=== PATIENT | female | born 1945 | race Caucasian/White ===

== ENCOUNTER 2016-11-12 09:13 | Outpatient (CLI) | payer MEDICARE ==
[~2016-11-12] VITALS: Ht 152.4 cm; Wt 61.4 kg
[~2016-11-12 09:13] MED LIST: HYDR12.55 PO
[2016-11-12] MEDS ORDERED: NS 1,000 ML IV ONE (10:00)
[2016-11-12] MEDS ORDERED: PROPOFOL 200 MG/20 ML VIAL As Ordered ONE ×2 (10:52→11:04)
[2016-11-12] MEDS ORDERED: LIDOCAINE 2% INJ 100 MG/5 ML SDV (FOR ANES.) As Ordered ONE (10:52)
--- NOTE | 2016-11-12 11:12 | ROOR ---
Patient Name: Lona Irving Procedure Date: 11/12/2016 10:45 AM Date of : 1945 Age: 71 Room: [facility] Gender: Female Note Status: Finalized Procedure: Colonoscopy Indications: High risk colon cancer surveillance: Personal history of colonic polyps Providers: Bonilla Moon Jr, MD Referring MD: Echo HEMPHILL RN Requesting Provider: Medicines: Propofol per Anesthesia Complications: No immediate complications. Procedure: Pre-Anesthesia Assessment: - Prior to the procedure, a History and Physical was performed, and patient medications and allergies were reviewed. The patient is competent. The risks and benefits of the procedure and the sedation options and risks were discussed with the patient. All questions were answered and informed consent was obtained. Patient identification and proposed procedure were verified by the physician and the nurse in the pre-procedure area and in the procedure room. Mental Status Examination: alert and oriented. Airway Examination: normal oropharyngeal airway and neck mobility. Respiratory Examination: clear to auscultation. CV Examination: normal. ASA Grade Assessment: II - A patient with mild systemic disease. After reviewing the risks and benefits, the patient was deemed in satisfactory condition to undergo the procedure. The anesthesia plan was to use moderate sedation / analgesia (conscious sedation). Immediately prior to administration of medications, the patient was re-assessed for adequacy to receive sedatives. The heart rate, respiratory rate, oxygen saturations, blood pressure, adequacy of pulmonary ventilation, and response to care were monitored throughout the procedure. The physical status of the patient was re-assessed after the procedure. The Colonoscope was introduced through the anus and advanced to the ileocolonic anastomosis. The colonoscopy was performed without difficulty. The patient tolerated the procedure well. The quality of the bowel preparation was adequate and good. Findings: The rectum, recto-sigmoid colon, descending colon, transverse colon and anastomosis appeared normal. Multiple small and large-mouthed diverticula were found in the sigmoid colon. Impression: - The rectum, recto-sigmoid colon, descending colon and transverse colon are normal. - Diverticulosis in the sigmoid colon. - No specimens collected. Recommendation: - Discharge patient to home (ambulatory). - Repeat colonoscopy in 5 years for surveillance. Bonilla Moon MD Bonilla Moon Jr, MD 11/12/2016 11:11:32 AM This report has been signed electronically. Number of Addenda: 0 Note Initiated On: 11/12/2016 10:45 AM Estimated Blood Loss: Estimated blood loss: none.
[2016-11-12 11:19] VITALS: BP 147/87
== END 2016-11-12 11:49 | disposition home or self-care (01) ==
LOC: M OPP 09:13
PROVIDERS: ATTEND Surgery
DX: Z12.11 Encounter for screening for malignant neoplasm of colon (principal); K57.30 Diverticulosis of large intestine without perforation or abscess without bleeding; Z86.010 Personal history of colon polyps

== ENCOUNTER → 2017-03-02 | Outpatient (CLI) | payer OTHER | LOC: M RAD 10:23 | DX: N63.24 Unspecified lump in the left breast, lower inner quadrant (principal); L03.313 Cellulitis of chest wall | CPT/HCPCS: 77066 ==

== ENCOUNTER 2020-02-02 04:47 | Emergency (ER) | payer MEDICARE, OTHER ==
[~2020-02-02] VITALS: Ht 152.4 cm; Wt 65.4 kg
[2020-02-02] MEDS ORDERED: LABETALOL 100MG/20ML VIAL IV STA (05:18)
[2020-02-02 05:22] LABS: BASO % 0.1 % (0.0-1.0); EOS % 0.3 % (0.0-3.0); HEMATOCRIT 41.6 % (36.0-47.0); HEMOGLOBIN 12.6 g/dl (12.0-15.5); LYMPH # 0.9 10^3/uL (1.5-5.0); LYMPH % 13.1 % (24.0-44.0); MEAN CORPUSCULAR HEMOGLOBIN 25.2 pg (27.0-33.0); MEAN CORPUSCULAR HGB CONC 30.3 g/dl (32.0-36.5); MEAN CORPUSCULAR VOLUME 83.2 fl (80.0-96.0); MONO # 0.5 10^3/uL (0.0-0.8); MONO % 6.6 % (0.0-5.0); NEUTROPHILS # 5.6 10^3/uL (1.5-8.5); NEUTROPHILS % 79.5 % (36.0-66.0); PLATELET COUNT, AUTOMATED 267 10^3/uL (150-450)
[2020-02-02] MEDS ORDERED: CLOPIDOGREL 300 MG TAB (PLAVIX) PO ONE (05:30)
[2020-02-02] MEDS ORDERED: ASPIRIN 81 MG CHEW TABLET PO ONE (05:30)
[2020-02-02] MEDS ORDERED: TENECTEPLASE 50 MG KIT (TNKase) (J3101 PER 1MG) IV ONE (05:30)
[2020-02-02] MEDS ORDERED: HEPARIN SOD (PORCINE) 5000UNITS/ML 1ML VIAL/SYRINGE IV ONE (05:30)
[2020-02-02] MEDS ORDERED: HEPARIN DRIP 25,000 UNITS in IV 1 EA IV SCH ×2 (05:30→05:36)
[2020-02-02] MEDS ORDERED: NITROGLYCERIN 2% OINT 1 GM *U/D* PKT TOP ONE (05:45)
--- NOTE | 2020-02-02 05:50 | REPVR ---
PROCEDURE INFORMATION: Exam: XR Chest, 1 View Exam date and time: 02/02/2020 5:32 AM Age: 75 years old Clinical indication: Chest pain TECHNIQUE: Imaging protocol: XR of the chest Views: 1 view. COMPARISON: CR Chest, 2 view PA, Lat 02/10/2013 10:59 AM FINDINGS: Lungs: There is minimal bibasilar atelectatic changes at the costophrenic angles. Pleural space: Unremarkable. No pleural effusion. No pneumothorax. Heart/Mediastinum: The cardiomediastinal silhouette is magnified. Vasculature: The thoracic aorta is tortuous. Bones/joints: Unremarkable. IMPRESSION: No focal consolidation. Electronically signed by: Beck Rodriguez On 02/02/2020 05:50:32 AM
[2020-02-02 05:51] LABS: CALCIUM LEVEL 9.2 MG/DL (8.8-10.2); CREATININE FOR GFR 1.25 MG/DL (0.55-1.30); GLOMERULAR FILTRATION RATE 44.6 (>39); MB/CK RELATIVE INDEX 5.1 (< OR =4); POTASSIUM SERUM 4.6 MEQ/L (3.5-5.1); TROPONIN I 0.69 NG/ML (< 0.10)
[2020-02-02 05:52] VITALS: BP 140/87
[2020-02-02 06:22] LABS: RSV AMPLIFICATION NEGATIVE (NEGATIVE)
[2020-02-02] MEDS ORDERED: MORPHINE 2 MG/ML 1ML VIAL (J2270) As Ordered ONE (06:23)
[2020-02-02 06:30] VITALS: BP 158/95
[2020-02-02] MEDS ORDERED: MORPHINE 2 MG/ML 1ML VIAL (J2270) IV PRN (06:30)
[2020-02-02 06:46] LABS: INR 0.88; PROTHROMBIN TIME 12.1 SECONDS (12.5-14.3)
[2020-02-02 06:47] LABS: PARTIAL THROMBOPLASTIN TIME 25.8 SECONDS (24.2-38.5)
--- NOTE | 2020-02-02 15:49 | ECGEPIP ---
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
== END 2020-02-02 06:37 | disposition short-term general hospital (02) ==
LOC: M ED 04:47
DX: I21.3 ST elevation (STEMI) myocardial infarction of unspecified site (principal); R11.0 Nausea; K21.9 Gastro-esophageal reflux disease without esophagitis; Z90.49 Acquired absence of other specified parts of digestive tract
CPT/HCPCS: 71045; 80048; 82550; 82553; 84484; 85025; 85610; 85730; 87631; 93005; 93041; 94760; 96365; 96375; 99285; J1644; J2270; J3101

== ENCOUNTER 2023-03-31 06:29 | Day surgery (SDC) | payer MEDICARE ==
[~2023-03-31] VITALS: Ht 152.4 cm; Wt 57.4 kg
[~2023-03-31 06:29] MED LIST changes: +ASPI81TA26 PO; +ATOR80TA59 PO; +GARL500C2 PO; +IRON27TA2 PO; +METO1TAB32 PO; +PHENYLEPHRINE 10% OPHTH SOL 5ML OS PRN
[2023-03-31] MEDS: TROPICAMIDE 1% OPHTH SOLN 15ML OS SCH (07:34)
[2023-03-31] MEDS: OFLOXACIN 0.3 % (OCUFLOX) OPTH SOL 5ML OS ONE (07:34)
[2023-03-31] MEDS: PHENYLEPHRINE 2.5% OPHTH SOL 2ML OS SCH (07:34)
[2023-03-31] MEDS: CYCLOPENTOLATE 1% OPHTH SOLN 2ML BTL OS SCH (07:35)
[2023-03-31] MEDS: LIDOCAINE 3.5 % 1ML OPHTH TOPICAL GEL OU ONE (07:35)
[2023-03-31] MEDS: CEFUROXIME 1MG/0.1ML INTRACAMERAL INJ As Ordered ONE (08:43)
[2023-03-31] MEDS: BSS IRRIG/VANCO(10MG)/TOBRA(5MG)/EPINEPH(1:1000-0.5CC)500ML BAG-ORONLY As Ordered ONE (08:43)
[2023-03-31] MEDS: LIDOCAINE 1% SDV 5ML VIAL As Ordered ONE (08:43)
[2023-03-31] MEDS ORDERED: fentaNYL 100 MCG/2 ML INJECTION As Ordered ONE (08:58)
[2023-03-31] MEDS ORDERED: MIDAZOLAM INJ 2MG/2ML VIAL As Ordered ONE (08:58)
[2023-03-31 09:13] VITALS: BP 148/75; TEMP 97.9; O2SAT 99
== END 2023-03-31 09:13 | disposition home or self-care (01) ==
LOC: M SDC 06:29
PROVIDERS: ATTEND Ophthalmology
DX: H25.12 Age-related nuclear cataract, left eye (principal); I10 Essential (primary) hypertension; E78.00 Pure hypercholesterolemia, unspecified; Z79.82 Long term (current) use of aspirin; Z79.899 Other long term (current) drug therapy; Z95.5 Presence of coronary angioplasty implant and graft; Z90.710 Acquired absence of both cervix and uterus; Z90.49 Acquired absence of other specified parts of digestive tract
CPT/HCPCS: 66984; 92015; J0697; J2250; J3010; V2632

== ENCOUNTER 2023-04-21 08:19 | Day surgery (SDC) | payer MEDICARE ==
[~2023-04-21] VITALS: Ht 152.4 cm; Wt 57.6 kg
[~2023-04-21 08:19] MED LIST changes: +PHENYLEPHRINE 10% OPHTH SOL 5ML OD PRN; -PHENYLEPHRINE 10% OPHTH SOL 5ML OS PRN; +fentaNYL 100 MCG/2 ML INJECTION As Ordered ONE
[2023-04-21] MEDS: PHENYLEPHRINE 2.5% OPHTH SOL 2ML OD SCH (08:58)
[2023-04-21] MEDS: OFLOXACIN 0.3 % (OCUFLOX) OPTH SOL 5ML OD ONE (08:58)
[2023-04-21] MEDS: LIDOCAINE 3.5 % 1ML OPHTH TOPICAL GEL OU ONE (08:58)
[2023-04-21] MEDS: ATROPINE SULFATE 1% OPHTH SOLN 2ML BTL OD SCH (08:58)
[2023-04-21] MEDS: TROPICAMIDE 1% OPHTH SOLN 15ML OD SCH (08:58)
[2023-04-21] MEDS: CEFUROXIME 1MG/0.1ML INTRACAMERAL INJ As Ordered ONE (09:39)
[2023-04-21] MEDS: BSS IRRIG/VANCO(10MG)/TOBRA(5MG)/EPINEPH(1:1000-0.5CC)500ML BAG-ORONLY As Ordered ONE (09:39)
[2023-04-21] MEDS: LIDOCAINE 1% SDV 5ML VIAL As Ordered ONE (09:39)
[2023-04-21 10:20] VITALS: BP 160/85; TEMP 98.4; O2SAT 96
== END 2023-04-21 10:23 | disposition home or self-care (01) ==
LOC: M SDC 08:19
PROVIDERS: ATTEND Ophthalmology
DX: H25.11 Age-related nuclear cataract, right eye (principal); Z95.5 Presence of coronary angioplasty implant and graft; I10 Essential (primary) hypertension; Z79.899 Other long term (current) drug therapy; Z87.891 Personal history of nicotine dependence
CPT/HCPCS: 66984; 92015; J0697; J3010; V2632

== ENCOUNTER 2024-10-08 08:48 | Emergency (ER) | payer MEDICARE ==
[~2024-10-08] VITALS: Ht 152.4 cm; Wt 61.3 kg
[~2024-10-08 08:48] MED LIST changes: -GARL500C2 PO; +GARL500C6 PO; -PHENYLEPHRINE 10% OPHTH SOL 5ML OD PRN; -fentaNYL 100 MCG/2 ML INJECTION As Ordered ONE
[2024-10-08 10:02] LABS: BASO # 0.0 10^3/uL (0.0-0.2); BASO % 0.1 % (0.0-1.0); EOS # 0.0 10^3/uL (0.0-0.5); EOS % 0.1 % (0.0-3.0); LYMPH # 0.6 10^3/uL (1.5-5.0); LYMPH % 5.9 % (24.0-44.0); MONO # 0.7 10^3/uL (0.0-0.8); MONO % 7.7 % (2.0-8.0); NEUTROPHILS # 8.3 10^3/uL (1.5-8.5); NEUTROPHILS % 85.9 % (36.0-66.0); PLATELET COUNT, AUTOMATED 235 10^3/uL (150-450)
[2024-10-08 10:31] LABS: CALCIUM LEVEL 9.5 MG/DL (8.3-10.6); CARBON DIOXIDE LEVEL 26.0 MMOL/L (20-31); CHLORIDE LEVEL 106.0 MMOL/L (98-107); CREATININE FOR GFR 1.15 MG/DL (0.55-1.30); GLOMERULAR FILTRATION RATE 48.8 (>39); POTASSIUM SERUM 4.4 MMOL/L (3.5-5.1); SODIUM LEVEL 144.0 MMOL/L (136-145)
[2024-10-08 11:51] LABS: KETONE, URINE AUTO RFX NEGATIVE (NEGATIVE); MUCUS, URINE RFX SMALL (NEGATIVE); NITRITE, URINE AUTO RFX NEGATIVE (NEGATIVE); RBC, URINE AUTO RFX 3 /HPF (0-3); SQUAM EPITHELIAL CELL UR AURFX 2 /HPF (0-6)
[2024-10-08 11:53] LABS: LEUKOCYTE ESTERASE UR AUTO RFX 3+ (NEGATIVE); WBC, URINE AUTO RFX 72 /HPF (0-3)
[2024-10-08 12:45] VITALS: BP 152/82; O2SAT 96
[2024-10-08] MEDS ORDERED: SULF1TAB23 PO (12:52)
[2024-10-08] MEDS: BACTRIM 160MG/800MG DS TAB PO ONE (12:59)
[2024-10-08 13:05] VITALS: TEMP 97.6
== END 2024-10-08 13:07 | disposition home or self-care (01) ==
LOC: M ED 08:48
DX: S20.212A Contusion of left front wall of thorax, initial encounter (principal); N39.0 Urinary tract infection, site not specified; Y92.9 Unspecified place or not applicable; Y93.9 Activity, unspecified; Y99.9 Unspecified external cause status; W01.0XXA Fall on same level from slipping, tripping and stumbling without subsequent striking against object, initial encounter; M41.35 Thoracogenic scoliosis, thoracolumbar region; I45.10 Unspecified right bundle-branch block; Z79.1 Long term (current) use of non-steroidal anti-inflammatories (NSAID); Z79.899 Other long term (current) drug therapy